=== PATIENT | male | born 1945 ===

== ENCOUNTER 2016-06-20 11:04 | Outpatient (CLI) | payer MEDICARE, OTHER | END 2016-06-20 11:05 | disposition home or self-care (01) | DX: Z12.5 Encounter for screening for malignant neoplasm of prostate (principal); I10 Essential (primary) hypertension; E78.2 Mixed hyperlipidemia; Z79.899 Other long term (current) drug therapy; M10.9 Gout, unspecified | CPT/HCPCS: 80053; 80061; 85025; G0103 ==

== ENCOUNTER 2016-07-05 10:50 | Outpatient (CLI) | payer MEDICARE, OTHER | END 2016-07-05 10:51 | disposition home or self-care (01) | DX: J01.90 Acute sinusitis, unspecified (principal); J32.9 Chronic sinusitis, unspecified; J34.2 Deviated nasal septum ==

== ENCOUNTER 2016-09-30 07:50 | Outpatient (CLI) | payer MEDICARE, OTHER ==
--- NOTE | 2016-09-30 15:38 | MRI Report ---
EXAM: LEFT ANKLE/HINDFOOT MRI WITHOUT CONTRAST EXAM DATE: 09/30/2016 08:54 AM. CLINICAL HISTORY: Peroneal tendonitis left leg. COMPARISON: None. TECHNIQUE: Multiplanar, multisequence T1-weighted and fluid-sensitive sequences of the ankle/hindfoot without contrast. Other: None. FINDINGS: Bones: No fractures or subluxations. No marrow edema. No bone lesions. Articular Cartilage: Unremarkable. Ligaments: The anterior and posterior tibiofibular, anterior and posterior talofibular, and calcaneof ibular ligaments are intact. The deep and superficial deltoid and spring ligaments are intact. Anterior Tendons: The tibialis anterior, extensor hallucis longus, and extensor digitorum longus tend ons are unremarkable. Medial Tendons: The tibialis posterior, flexor digitorum longus, and flexor hallucis longus tendons a re unremarkable. Lateral Tendons: Moderate-sized vertical split peroneus brevis. Peroneus longus shows some increased size. There also is some increased fluid in the peroneal tendon sheath. Please see series 701 image 2 4, series 701 image 18. Achilles Tendon: The Achilles tendon is unremarkable. Musculature: No edema or fatty atrophy. Other: No effusions. The contents of the sinus tarsi and tarsal tunnel are unremarkable. No plantar f asciitis. Subcutaneous soft tissue swelling and edema seen laterally and dorsally over the foot and a nkle. IMPRESSION: 1. Moderate-sized vertical split tear peroneus brevis, peroneus longus also shows some tendinitis. Te nosynovitis with fluid and debris in the peroneal tendon sheath. 2. Subcutaneous soft tissue swelling and edema seen laterally and dorsally over the foot and ankle. 3. Collateral ligament complexes appear unremarkable. Normal bones. [facility] MUSCULOSKELETAL RADIOLOGY SECTION Referring Provider Line: [phone] SITE ID: [id number]
== END 2016-09-30 07:51 | disposition home or self-care (01) ==
LOC: DI 07:50
PROVIDERS: ATTEND Podiatrist
DX: S86.312A Strain of muscle(s) and tendon(s) of peroneal muscle group at lower leg level, left leg, initial encounter (principal); M76.72 Peroneal tendinitis, left leg; M65.862 Other synovitis and tenosynovitis, left lower leg

== ENCOUNTER 2017-01-05 16:48 | Outpatient (CLI) | payer MEDICARE, OTHER ==
--- NOTE | 2017-01-07 00:21 | XRAY Report ---
EXAM: CHEST RADIOGRAPHY EXAM DATE: 01/05/2017 04:54 PM. CLINICAL HISTORY: COMMUNITY ACQUIRED PNEUMONIA. COMPARISON: None. TECHNIQUE: 2 views. FINDINGS: Lungs/Pleura: No focal opacities evident. No pleural effusion. No pneumothorax. Normal volumes. Mediastinum: Heart and mediastinal contours are unremarkable. Other: Multilevel [id number] thoracic spine anterior compression deformities, appear chronic. IMPRESSION: No acute cardiopulmonary disease is seen. [facility] Referring Provider Line: [phone] SITE ID: [id number]
== END 2017-01-05 16:49 | disposition home or self-care (01) ==
LOC: DI 16:48
PROVIDERS: ATTEND Physician Assistant Medical
DX: J18.9 Pneumonia, unspecified organism (principal)
CPT/HCPCS: 71020